=== PATIENT | female | born 1985 | race Caucasian/White ===

== ENCOUNTER → 2018-06-03 | Outpatient (CLI) | payer MEDICAID | END | disposition home or self-care (01) | LOC: U/S 19:40 | DX: O26.849 Uterine size-date discrepancy, unspecified trimester (principal); Z3A.00 Weeks of gestation of pregnancy not specified | CPT/HCPCS: 76801; 76817 ==

== ENCOUNTER 2018-08-08 09:59 | Emergency (ER) | payer MEDICAID ==
[2018-08-08 11:33] LABS: ADD MAN DIFF? NO
[2018-08-08 11:40] LABS: WHITE BLOOD COUNT 6.1 10^3/ul (4.8-10.8)
[2018-08-08 11:40] LABS: BASOPHILS % 0.2 % (0.0-2.0); EOSINOPHILS # 0.2 10^3/ul (0.0-0.5); EOSINOPHILS % 2.8 % (0.0-7.0); LYMPHOCYTES # 1.6 10^3/ul (0.8-2.9); LYMPHOCYTES % 26.2 % (15.0-51.0); MEAN CORPUSCULAR HEMOGLOBIN 27.8 pg (29.0-33.0); MEAN CORPUSCULAR HGB CONC 33.3 g/dl (32.0-37.0); MEAN CORPUSCULAR VOLUME 83.3 fl (82.0-101.0); MEAN PLATELET VOLUME 10.1 fl (7.4-10.4); MONOCYTE # 0.4 10^3/ul (0.3-0.9); MONOCYTES % 7.1 % (0.0-11.0); NEUTROPHIL # 3.8 10^3/ul (1.6-7.5); PLATELET COUNT 257 10^3/UL (140-415); RED BLOOD COUNT 4.32 10^6/ul (4.20-5.40); RED CELL DISTRIBUTION WIDTH 12.8 % (11.5-14.5)
[2018-08-08 11:44] LABS: ADD UMIC YES; UR ASCORBIC ACID NEGATIVE (NEGATIVE); UR BACTERIA FEW /HPF (NONE SEEN); UR BILIRUBIN (Dip) NEGATIVE (NEGATIVE); UR BLOOD (Dip) 3+ mg/dL (NEGATIVE); UR CLARITY SLIGHTLY CLOUDY (CLEAR); UR COLOR YELLOW (YELLOW); UR GLUCOSE (Dip) NEGATIVE (NEGATIVE); UR KETONES (Dip) NEGATIVE (NEGATIVE); UR LEUKOCYTE ESTERASE (Dip) NEGATIVE Leu/ul (NEGATIVE); UR MUCUS FEW /HPF (NONE SEEN); UR NITRITE (Dip) NEGATIVE (NEGATIVE); UR RBC 4 /HPF (0-5); UR SPECIFIC GRAVITY (Dip) 1.004 (1.003-1.030); UR SQUAMOUS EPITHELIAL CELL FEW /HPF (FEW); UR TOTAL PROTEIN (Dip) NEGATIVE (NEGATIVE); UR UROBILINOGEN (Dip) NEGATIVE (NEGATIVE); UR WBC 2 /HPF (0-5)
[2018-08-08] MEDS: ACETAMINOPHEN 500 MG TAB PO (12:14)
== END 2018-08-08 13:07 | disposition home or self-care (01) ==
LOC: FTE 09:59
DX: O26.892 Other specified pregnancy related conditions, second trimester (principal); R10.2 Pelvic and perineal pain; O20.9 Hemorrhage in early pregnancy, unspecified; Z3A.15 15 weeks gestation of pregnancy
CPT/HCPCS: 36415; 76805; 81001; 84702; 85025; 86900; 86901; 99284-25

== ENCOUNTER 2019-01-23 13:08 | Inpatient (IN) | payer MEDICAID ==
[2019-01-23] MEDS ORDERED: AMPICILLIN 2 GM/NS (PMX) 100 ML (13:22)
[2019-01-23] MEDS ORDERED: OXYTOCIN 30 UNITS/LR 500 ML IV ×2 (13:30→19:00)
[2019-01-23] MEDS ORDERED: LIDOCAINE 1% (MPF) 30 ML INJ INJ (13:30)
[2019-01-23] MEDS ORDERED: MISOPROSTOL 200 MCG TAB PR ×2 (13:30→19:00)
[2019-01-23] MEDS ORDERED: IBUPROFEN 600 MG TAB PO (13:30)
[2019-01-23] MEDS ORDERED: OXYCODONE/ASPIRIN (4.88/325) TAB PO ×2 (13:30→19:00)
[2019-01-23] MEDS ORDERED: METHYLERGONOVINE 0.2 MG INJ IM ×2 (13:30→19:00)
[2019-01-23] MEDS ORDERED: CARBOPROST 250 MCG INJ IM ×2 (13:30→19:00)
[2019-01-23] MEDS ORDERED: BUTORPHANOL 2 MG INJ IV ×2 (13:30)
[2019-01-23] MEDS: AMPICILLIN 2 GM/NS (PMX) 100 ML IV (13:32)
[2019-01-23] MEDS: LACTATED RINGER'S 1,000 ML IV ×2 (13:32→14:47)
[2019-01-23 13:58] LABS: ADD MAN DIFF? NO
[2019-01-23 14:00] LABS: BASOPHILS % 0.3 % (0.0-2.0); EOSINOPHILS # 0.1 10^3/ul (0.0-0.5); EOSINOPHILS % 1.7 % (0.0-7.0); HEMATOCRIT 36.2 % (37.0-47.0); HEMOGLOBIN 11.9 g/dl (12.0-16.0); LYMPHOCYTES # 1.7 10^3/ul (0.8-2.9); LYMPHOCYTES % 23.2 % (15.0-51.0); MEAN CORPUSCULAR HEMOGLOBIN 27.9 pg (29.0-33.0); MEAN CORPUSCULAR HGB CONC 32.9 g/dl (32.0-37.0); MEAN PLATELET VOLUME 10.6 fl (7.4-10.4); MONOCYTE # 0.5 10^3/ul (0.3-0.9); MONOCYTES % 6.8 % (0.0-11.0); NEUTROPHILS % 67.1 % (39.0-77.0); PLATELET COUNT 250 10^3/UL (140-415); RED BLOOD COUNT 4.26 10^6/ul (4.20-5.40); RED CELL DISTRIBUTION WIDTH 13.3 % (11.5-14.5)
[2019-01-23 14:00] LABS: WHITE BLOOD COUNT 7.5 10^3/ul (4.8-10.8)
[2019-01-23] MEDS ORDERED: DIPHENHYDRAMINE 50 MG INJ IV (14:00)
[2019-01-23] MEDS ORDERED: ONDANSETRON 4 MG INJ IV (14:00)
[2019-01-23] MEDS ORDERED: ROPIVACAINE 0.2% 100ML BAG EPI (14:00)
[2019-01-23] MEDS ORDERED: NALOXONE (0.4 MG/ML) INJ IV (14:00)
[2019-01-23] MEDS ORDERED: FENTAnyl 2MCG/ML-ROPIV 0.2% 100 ML (14:15)
[2019-01-23 14:19] LABS: INR 0.91; PROTIME 12.4 Sec (11.9-14.9)
[2019-01-23 14:20] LABS: PARTIAL THROMBOPLASTIN TIME 29.7 Sec (23.0-35.0)
[2019-01-23] MEDS ORDERED: LACTATED RINGER'S 1,000 ML IV (15:00)
[2019-01-23] MEDS: OXYTOCIN 30 UNITS/LR 500 ML IV ×2 (16:28→17:40)
[2019-01-23 17:10] LABS: RAPID PLASMA REAGIN NONREACTIVE (NR)
[2019-01-23] MEDS ORDERED: AMPICILLIN 1 GM/NS (PMX) 50 ML IV (17:30)
[2019-01-23] MEDS: IBUPROFEN 600 MG TAB PO (18:58)
[2019-01-23] MEDS: WITCH HAZEL/GLYCERIN PAD PR (18:59)
[2019-01-23] MEDS: BENZOCAINE 20% 56 ML SPRAY TOP (18:59)
[2019-01-23] MEDS ORDERED: ZOLPIDEM 5 MG TAB PO (19:00)
[2019-01-23] MEDS: SENNA/DOCUSATE NA (8.6MG/50MG) TAB PO (21:24)
[2019-01-24] MEDS: LANOLIN HPA 1 PKT TOP (00:04)
[2019-01-24] MEDS: IBUPROFEN 600 MG TAB PO ×4 (00:04→17:30)
[2019-01-24 08:40] LABS: ADD MAN DIFF? NO
[2019-01-24 08:43] LABS: WHITE BLOOD COUNT 8.8 10^3/ul (4.8-10.8)
[2019-01-24 08:43] LABS: BASOPHILS % 0.3 % (0.0-2.0); EOSINOPHILS # 0.2 10^3/ul (0.0-0.5); EOSINOPHILS % 2.3 % (0.0-7.0); HEMATOCRIT 36.7 % (37.0-47.0); HEMOGLOBIN 12.1 g/dl (12.0-16.0); LYMPHOCYTES # 1.9 10^3/ul (0.8-2.9); LYMPHOCYTES % 21.9 % (15.0-51.0); MEAN CORPUSCULAR HEMOGLOBIN 27.8 pg (29.0-33.0); MEAN CORPUSCULAR VOLUME 84.2 fl (82.0-101.0); MEAN PLATELET VOLUME 10.8 fl (7.4-10.4); MONOCYTE # 0.6 10^3/ul (0.3-0.9); MONOCYTES % 6.5 % (0.0-11.0); NEUTROPHILS % 68.4 % (39.0-77.0); PLATELET COUNT 258 10^3/UL (140-415); RED BLOOD COUNT 4.36 10^6/ul (4.20-5.40); RED CELL DISTRIBUTION WIDTH 13.4 % (11.5-14.5)
[2019-01-24] MEDS: OXYCODONE/ASPIRIN (4.88/325) TAB PO (08:47)
[2019-01-24] MEDS: SENNA/DOCUSATE NA (8.6MG/50MG) TAB PO ×2 (08:47→21:39)
[2019-01-25] MEDS: IBUPROFEN 600 MG TAB PO ×3 (00:07→12:28)
[2019-01-25] MEDS: SENNA/DOCUSATE NA (8.6MG/50MG) TAB PO (09:00)
[2019-01-25] MEDS: LANOLIN HPA 1 PKT TOP (12:28)
[2019-01-25] MEDS: DIPHTH/TET/ACEL PERTUSS (ADULT) 0.5 ML VIAL IM* (12:30)
== END 2019-01-25 19:40 | disposition home or self-care (01) | DRG 807 ==
LOC: L-D 13:08 → PP1 18:28
PROVIDERS: Obstetrics & Gynecology
PROC: 10E0XZZ Delivery of Products of Conception, External Approach (ICD-10-PCS; principal; 2019-01-23)
DX: O76 Abnormality in fetal heart rate and rhythm complicating labor and delivery (principal); Z37.0 Single live birth; M79.661 Pain in right lower leg; Z3A.39 39 weeks gestation of pregnancy; Z23 Encounter for immunization
CPT/HCPCS: 62322; 85025; 85610; 85730; 86592; 86850; 86900; 86901; 93971; 99464